=== PATIENT | male | born 1995 | race Caucasian/White ===

== ENCOUNTER 2018-04-19 14:29 | Emergency (ER) | payer OTHER, SELFPAY ==
[2018-04-19 14:38] VITALS: BP 130/85; PULSE 89; RESP 16; TEMP 36.2; O2SAT 100; BMI 29.5
--- NOTE | 2018-04-19 15:54 | ED_ITS ---
HPI - Back Pain/Injury <Lesa Silva PA-C - Last Filed: 04/19/18 22:16> General Chief Complaint: Back Pain/Injury Stated Complaint: threw out his back Time Seen by Provider: 04/19/18 16:06 Source: patient Mode of arrival: ambulatory Limitations: no limitations History of Present Illness HPI Narrative: This 23-year-old male comes to ED secondary to low back pain. 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 He states that he was unable to move or finishes work and needed help out of his truck. He took some Flexeril from a friend and states that has helped a fair amount, able to move a little bit and walk with a stiff gait. He states that he has had back strain from time to time this is worse than previous. He does mechanical and kuldip work, and states that there is always stress on his back, however he denies any specific work related injury and he had finished work after this happened last night. He denies any lower extremity weakness or paresthesia. He denies any groin numbness. He denies any difficulty urinating or bowel changes. He denies any new fever or other new symptoms on systems review. Related Data Previous Rx's Medication Instructions Recorded cyclobenzaprine 10 mg PO Q8H PRN #20 tab 04/19/18 lidocaine [Lidoderm] 2 patch TOP Q24H #30 each 04/19/18 meloxicam 15 mg PO DAILY #20 tab 04/19/18 Allergies Allergy/AdvReac Type Severity Reaction Status Date / Time No Known Drug Allergies Allergy Verified 04/19/18 14:38 Review of Systems <Lesa Silva PA-C - Last Filed: 04/19/18 22:16> Review of Systems ROS Unobtainable: All systems reviewed & are unremarkable except as noted in HPI and below PFSH <Lesa Silva PA-C - Last Filed: 04/19/18 22:16> Medical History Intermittent low back pain (Chronic) Surgical History Status post appendectomy (Resolved) Social History Smoking Status: Current every day smoker Social History Smoking Status: Current every day smoker Comment: Quit ETOH Exam <Lesa Silva PA-C - Last Filed: 04/19/18 22:16> Narrative Exam Narrative: GENERAL APPEARANCE: Patient sitting comfortably, in no distress. PULMONARY: Lungs clear to auscultation bilaterally CV: Regular rhythm regular without murmur, normal S1 and S2, no S3 or S4 MUSCULOSKELETAL: No point tenderness over the lumbar spine. Moderate tenderness and tightness over the left low lumbar musculature, most at the the mid scapular line, no tenderness on the right. He is able to fully extend the spine but not hyperextend. He is able to flex to about 30?. Unable to attempt rotation or lateral bend secondary to tenderness. Lower extremity strength 5/5 bilateral hip flexors, knee extensors, foot plantar flexion. Negative modified straight leg raise. He ambulates with a stiff, somewhat shortened gait, no limp or footdrop NEUROLOGIC: Bilateral patellar and Achilles DTRs 2+, lower extremity sensation grossly intact Initial Vital Signs Initial Vital Signs: Vital Signs Temperature 97.1 F L 04/19/18 14:38 Pulse Rate 89 04/19/18 14:38 Respiratory Rate 16 04/19/18 14:38 Blood Pressure 130/85 04/19/18 14:38 Pulse Oximetry 100 04/19/18 14:38 <Shantal Steinberg DO - Last Filed: 04/23/18 02:27> Initial Vital Signs Initial Vital Signs: Vital Signs Temperature 97.1 F L 04/19/18 14:38 Pulse Rate 89 04/19/18 14:38 Respiratory Rate 16 04/19/18 14:38 Blood Pressure 130/85 04/19/18 14:38 Pulse Oximetry 100 04/19/18 14:38 Course <Lesa Silva PA-C - Last Filed: 04/19/18 22:16> Vital Signs - 8 hr 04/19/18 14:38 04/19/18 16:39 Temperature 97.1 F L Pulse Rate 89 76 Respiratory Rate 16 16 Blood Pressure 130/85 123/77 Pulse Oximetry 100 99 <DO Swati Kendall Last Filed: 04/23/18 02:27> Vital Signs - 8 hr 04/19/18 14:38 04/19/18 16:39 Temperature 97.1 F L Pulse Rate 89 76 Respiratory Rate 16 16 Blood Pressure 130/85 123/77 Pulse Oximetry 100 99 Discharge Plan Departure Patient Disposition: Home Clinical Impression: Strain of lumbar region Qualifiers: Encounter type: initial encounter Qualified Code(s): S39.012A - Strain of muscle, fascia and tendon of lower back, initial encounter Discharge Date/Time: 04/19/18 16:41 Interventions: ED Discharge Assessment Last Done: 04/19/18 16:39 Instructions: DI for Back Spasm, DI for Back Strain or Sprain Activity Restrictions/Additional Instructions: Please return as we talked about if you have acutely worsening symptoms, or new symptoms such as weakness in your leg or difficulty walking, inability to urinate, etc. Otherwise, please rest at home. I have prescribed a once daily anti-inflammatory pain medicine called meloxicam with you as well as more Flexeril since that seemed to help you before. Remember that the Flexeril can make you drowsy and you should not work or drive. I have also prescribed some topical anesthetic pain patches for you. These have all been sent to your pharmacy. Please call your insurance tomorrow and schedule a follow-up with a local PCP who accepts your insurance, and hopefully you can get a referral to a local physical therapist to help prevent recurrent back injuries. [facility] clinic here in [facility] is typically able to see patients quickly if they take your insurance. You should remain off work until you are feeling better. Prescriptions: New cyclobenzaprine 10 mg tablet 10 mg PO Q8H PRN (Reason: muscle spasm) Qty: 20 RF: 0 meloxicam 15 mg tablet 15 mg PO DAILY Qty: 20 RF: 0 lidocaine [Lidoderm] 5 % adhesive patch,medicated 2 patch TOP Q24H Qty: 30 RF: 0 Stand Alone Forms: Work Release Note <Shantal Steinberg DO - Last Filed: 04/23/18 02:27> Cosign ED Attending Umesh Attestation: I was immediately available in the department for consultation. Documentation has been reviewed. I agree with assessment and plan.
[2018-04-19 16:39] VITALS: BP 123/77; PULSE 76; RESP 16; O2SAT 99
== END 2018-04-19 16:41 | disposition home or self-care (01) ==
PROVIDERS: Emergency Provider Internal Medicine
DX: S39.012A Strain of muscle, fascia and tendon of lower back, initial encounter (principal)
CPT/HCPCS: 99282; 99283

== ENCOUNTER 2019-05-24 11:11 | Observation (INO) | payer OTHER, SELFPAY ==
[2019-05-24] VITALS (11 sets, daily range): BP systolic 121–159; BP diastolic 79–100; PULSE 65–91; RESP 12–20; TEMP 36.4–36.8; O2SAT 98–100; BMI 63.4
--- NOTE | 2019-05-24 11:11 | DI.RAD.S_ITS ---
PROCEDURE: XR KNEE LT 1TO2V INDICATIONS: roof nail in knee TECHNIQUE: 3 views of the knee were acquired. COMPARISON: None. FINDINGS: Bones: No fractures or dislocations. No suspicious bony lesions. Soft tissues: A joint effusion cannot be excluded. The lateral view and is hyperflexed. There is a metal nail above the patella, between the patella and the distal femur. There is also a thin metal fragment which may be part of the nail, and is either outside of the leg or within the soft tissues. No suspicious soft tissue calcifications. IMPRESSION: Metallic foreign body, knee, likely extending into an intra-articular location within the knee joint. No fracture or dislocation. Dictated by: Jesus Ac M.D. on 05/24/2019 at 11:45 Approved by: Jesus Ac M.D. on 05/24/2019 at 11:47
[2019-05-24] MEDS: MORPHINE 2 MG/ML INJ IV ×2 (11:20→14:10)
--- NOTE | 2019-05-24 11:28 | ED_ITS ---
HPI - Extremity Injury (Lower) <Danisha Tim PA-C - Last Filed: 05/24/19 16:23> General Chief Complaint: Trauma Stated Complaint: Left Extremity Injury Time Seen by Provider: 05/24/19 11:11 Source: patient Mode of arrival: Ambulatory Limitations: no limitations and other History of Present Illness HPI Narrative: Keron is a 24-year-old male smoker, who presents to the emergency department brought in by ambulance after sustaining a nail gun injury to his left knee. 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 His knee was bent and the nail went in directly in the center, he has kept his leg bent since that time. the embedded nail is a galvanized 1 and 1/4 inch long kuldip nail with 2 copper barbs. Since this injury happened he has kept his knee bent, he had to be helped off the roof, and EMS splinted the leg with a triangle bandage keeping it in a bent position at the knee. His pain was a 10/10 initially, however after receiving morphine by EMS his pain is a 7/10 on arrival to the emergency department. He does report a little bit of numbness and tingling in his left lower leg, however he thinks this may be because he has been keeping it tightly bent since the injury occurred. He reports a previous injury to this knee about 4 years ago also from a nail, which was not as deep and which he extracted himself. He has had no surgeries to his left knee. He does not take blood thinners. He reports no other injuries and was feeling well prior to this injury. Last ate and had some fluids about 2 hours ago. He denies significant bleeding, swelling to the affected area, nausea vomiting fever cough shortness of breath loss of sensation in his left lower extremity or any other symptoms. MD complaint: leg injury (left knee) Onset (ago): hour(s) (1) Injury: Left: knee (nail through patella) Type of Injury: puncture wound Place: work Severity: moderate Severity scale (1-10): 10 Relieving factors: immobilization and other (morphine by EMS) Exacerbating factors: movement Context: other (nail gun) Associated symptoms: tingling, unable to bear weight and other (unable to bend the knee ) Other symptoms: none Treatments prior to arrival: splint (Makinen bandage tieing lower leg to upper leg with knee at a 45 degree angle) Related Data Previous Rx's Medication Instructions Recorded cyclobenzaprine 10 mg PO Q8H PRN #20 tab 04/19/18 lidocaine [Lidoderm] 2 patch TOP Q24H #30 each 04/19/18 meloxicam 15 mg PO DAILY #20 tab 04/19/18 cephalexin [Keflex] 500 mg PO QID #28 cap 05/24/19 cephalexin [Keflex] 500 mg PO TID #30 caplet 05/24/19 hydrocodone-acetaminophen [[place]] 1 tab PO Q4H PRN #7 tab 05/24/19 hydrocodone-acetaminophen [[place]] 1 tab PO Q6H PRN #12 tab NS 05/24/19 Allergies Allergy/AdvReac Type Severity Reaction Status Date / Time bee venom protein (honey bee) AdvReac Verified 05/24/19 12:19 Review of Systems <Danisha Tim PA-C - Last Filed: 05/24/19 16:23> Review of Systems ROS Unobtainable: All systems reviewed & are unremarkable except as noted in HPI and below Constitutional Constitutional: Reports as per HPI and Reports system reviewed and no additional complaints, except as docu Eyes Eyes: Reports system reviewed and no additional complaints, except as docu ENT Ears, Nose, Mouth, and Throat: Reports system reviewed and no additional complaints, except as docu Cardiovascular Cardiovascular: Reports system reviewed and no additional complaints, except as docu Respiratory Respiratory: Reports system reviewed and no additional complaints, except as docu Gastrointestinal Gastrointestinal: Reports system reviewed and no additional complaints, except as docu Genitourinary Genitourinary: Reports system reviewed and no additional complaints, except as docu Musculoskeletal Musculoskeletal: Reports as per HPI, Reports myalgias, Reports arthralgias, Reports limited range of motion, Denies numbness and Reports tingling Integumentary/Breasts Skin/Breast: Reports system reviewed and no additional complaints, except as docu Neurologic Neurologic: Reports as per HPI, Denies numbness, Denies sensory deficit, Reports tingling and Denies paresthesias Psychiatric Psychiatric: Reports system reviewed and no additional complaints, except as docu Hematologic/Lymphatic Hematologic/Lymphatic: Reports system reviewed and no additional complaints, except as docu, Denies easy bleeding and Denies easy bruising Patient History <Danisha Tim PA-C - Last Filed: 05/24/19 16:23> Medical History Intermittent low back pain (Chronic) Surgical History Status post appendectomy (Resolved) Social History Smoking Status: Current every day smoker Smoking Status: Current every day smoker tobacco type: cigarettes alcohol intake frequency: holidays/special occasions only Substance Use Type: marijuana Exam <Danisha Tim PA-C - Last Filed: 05/24/19 16:23> Initial Vital Signs Initial Vital Signs: Vital Signs Temperature 98.3 F 05/24/19 11:15 Pulse Rate 78 05/24/19 11:15 Respiratory Rate 14 05/24/19 11:15 Blood Pressure 159/100 H 05/24/19 11:15 Pulse Oximetry 100 05/24/19 11:15 Const General: cooperative, healthy appearing, acute distress and well hydrated Nutritional Appearance: average body habitus Orientation: Orientation (x4) Limitations: physical limitations (2nd to injury) [facility] Head: normal to inspection, normocephalic and atraumatic Ears: hearing grossly normal bilaterally and external ears normal Nose: external nose normal and nares normal Face and sinus: normal facial exam Eyes General: appearance normal, both eyes and all related structures Alignment and Position: alignment normal Eyelids: eyelids normal Conjunctivae: conjunctivae normal Sclera: sclerae normal Pupils: PERRL Neck Neck: normal visual inspection Chest Chest: normal inspection of the chest Resp Effort & Inspection: normal respiratory effort and able to speak in complete sentences Auscultation: clear to auscultation bilaterally Cardio Rate: regular rate Rhythm: regular rhythm Heart Sounds: S1 normal and S2 normal GI Inspection: normal to inspection Palpation: soft Back/Spine/Pelvis Back: normal to inspection Skin Trauma: puncture Neuro General: alert, awake and oriented x3 Speech: speech normal Extrem General: normal to inspection and full ROM Left lower extremity: normal capillary refill and knee Details: abnormal to inspection, tenderness, swelling (very mild) Location: of the patella, knee ligament exam normal and foreign body (superior to patella, 1 1/4 in nail imbedded to 1 depth); inspection abnormal and ROM abnormal; abnormal to inspection, abnormal ROM, no cyanosis, no edema and joint enlargement noted Psych Appearance: grossly normal <Kush Dale DO - Last Filed: 05/30/19 18:59> Initial Vital Signs Initial Vital Signs: Vital Signs Temperature 98.3 F 05/24/19 11:15 Pulse Rate 78 05/24/19 11:15 Respiratory Rate 14 05/24/19 11:15 Blood Pressure 159/100 H 05/24/19 11:15 Pulse Oximetry 100 05/24/19 11:15 Procedures <Danisha Tim PA-C - Last Filed: 05/24/19 16:23> Foreign Body OTHER Time Out Performed: yes Site: left and lower extremity (knee) Description of foreign body: other (1 1/4 inche copper barbed kuldip nail) Sedation/Analgesia: other (morphine, dilaudid, local infiltration) Technique: manual removal Confirmed by:: direct visualization Complications: none Post-procedure exam: awake, alert, normal BP, normal HR and normal O2 sat Neurovascular: normal distal pulse, distal light touch sensation intact, distal motor function normal, no signs of compartment syndrome and no change from pre- procedure Course <Danisha Tim PA-C - Last Filed: 05/24/19 16:23> Course Course Narrative: Patient was still in significant pain on arrival, he was given additional morphine before imaging. Initial exam of the left lower extremity showed no deficit except for reduced range of motion secondary to pain and presence of nail Orders Ordered: Discontinued Medications Acetaminophen (Tylenol) 975 mg PO NOW ONE Stop: 05/24/19 14:53 Last Admin: 05/24/19 16:50 Dose: 975 mg Documented by: HAYDEN Bupivacaine HCl (Sensorcaine 0.5% (Pf)) 30 ml INJ NOW ONE Stop: 05/24/19 16:29 Last Admin: 05/24/19 16:29 Dose: 15 ml Documented by: FERNANDA Celecoxib (Celebrex) 400 mg PO NOW ONE Stop: 05/24/19 14:53 Last Admin: 05/24/19 16:50 Dose: 400 mg Documented by: HAYDEN Diphtheria/Tetanus/Acell Pertussis (Adacel) 0.5 ml IM .ONCE ONE Stop: 05/24/19 11:20 Last Admin: 05/24/19 11:47 Dose: 0.5 ml Documented by: JAMAL Fentanyl (Sublimaze) 0 mcg IV Q5MIN PRN PRN Reason: Pain, Severe (7-10) Last Admin: 05/24/19 16:48 Dose: 24 mcg Documented by: HAYDEN Gabapentin (Neurontin) 300 mg PO NOW ONE Stop: 05/24/19 14:53 Last Admin: 05/24/19 16:49 Dose: 300 mg Documented by: HAYDEN Hydromorphone HCl (Dilaudid) 1 mg IM NOW ONE Stop: 05/24/19 11:48 Last Admin: 05/24/19 11:58 Dose: 1 mg Documented by: JAMAL Cefazolin Sodium/Dextrose (Ancef) 2 gm in 100 mls @ 200 mls/hr IV NOW ONE Stop: 05/24/19 12:15 Last Infusion: 05/24/19 16:05 Dose: 0 mls/hr Documented by: Admin: 05/24/19 15:50 Dose: 200 mls/hr Documented by: Infusion: 05/24/19 12:37 Dose: 0 mls/hr Documented by: Admin: 05/24/19 11:52 Dose: 200 mls/hr Documented by: JAMAL Lactated Ringer's (Lactated Ringers) 1,000 mls @ 42 mls/hr IV CONT DIAMANTE Last Infusion: 05/24/19 17:30 Dose: 0 mls/hr Documented by: Admin: 05/24/19 15:58 Dose: 42 mls/hr Documented by: HAYDEN Lactated Ringer's (Lactated Ringers) 1,000 mls @ 120 mls/hr IV CONT DIAMANTE Lidocaine/Sodium Bicarbonate (Buffered Lidocaine 10 Ml Syr) 10 ml INJ NOW ONE Stop: 05/24/19 11:13 Last Admin: 05/24/19 11:52 Dose: 10 ml Documented by: JAMAL Morphine Sulfate (Morphine) 2 mg IV Q2HR PRN PRN Reason: Pain, Severe (7-10) Last Admin: 05/24/19 14:10 Dose: 2 mg Documented by: Admin: 05/24/19 11:20 Dose: 2 mg Documented by: JAMAL Ondansetron HCl (Zofran) 4 mg IV NOW PRN PRN Reason: Nausea And Vomiting Oxycodone HCl (Percolone) 5 mg PO PACUNOW PRN PRN Reason: Mild or moderate pain Last Admin: 05/24/19 17:10 Dose: 5 mg Documented by: HAYDEN Reevaluation(s) Reevaluation #1: X-ray shows the nail appears to be superior to the patella, h owever it is probably in the capsule of the joint, discussed this with Dr. Dale, who advises we will numb with lidocaine, pull the nail get additional x- rays to confirm there was nothing left in the joint/knee and then call on-call orthopedics as he may need washout. Time: 11:52 Reevaluation #2: Was planning to discharge the patient home as per Dr. Dale discussion with Dr. don Orthopedics, however Dr. don came down and evaluated the patient look at the imaging again and decided to take the patient to the OR for washout. Time: 12:50 Consultations Consultation #1: Dr. Dale spoke with Dr. Treviño, clerical receptionist orthopedics, they reviewed films and discussed this patient's case. Dr. Treviño advised to wash out, discharge with antibiotics and follow-up with ortho. After examining the patient in the ED and reviewing imaging again he will take the patient to the OR direct for surgical washout. Time: 12:22 Vital Signs Vital signs: Vital Signs - 8 hr 05/24/19 11:15 05/24/19 12:01 05/24/19 12:06 Temperature 98.3 F Pulse Rate 78 91 H 70 Respiratory Rate 14 12 16 Blood Pressure 159/100 H 151/91 H Blood Pressure [Left Arm] 149/95 H Pulse Oximetry 100 100 98 05/24/19 13:11 Temperature Pulse Rate 76 Respiratory Rate 18 Blood Pressure Blood Pressure [Left Arm] 131/83 Pulse Oximetry 100 <Kush Dale, DO - Last Filed: 05/30/19 18:59> Orders Ordered: Discontinued Medications Acetaminophen (Tylenol) 975 mg PO NOW ONE Stop: 05/24/19 14:53 Last Admin: 05/24/19 16:50 Dose: 975 mg Documented by: HAYDEN Bupivacaine HCl (Sensorcaine 0.5% (Pf)) 30 ml INJ NOW ONE Stop: 05/24/19 16:29 Last Admin: 05/24/19 16:29 Dose: 15 ml Documented by: FERNANDA Celecoxib (Celebrex) 400 mg PO NOW ONE Stop: 05/24/19 14:53 Last Admin: 05/24/19 16:50 Dose: 400 mg Documented by: HAYDEN Diphtheria/Tetanus/Acell Pertussis (Adacel) 0.5 ml IM .ONCE ONE Stop: 05/24/19 11:20 Last Admin: 05/24/19 11:47 Dose: 0.5 ml Documented by: JAMAL Fentanyl (Sublimaze) 0 mcg IV Q5MIN PRN PRN Reason: Pain, Severe (7-10) Last Admin: 05/24/19 16:48 Dose: 24 mcg Documented by: HAYDEN Gabapentin (Neurontin) 300 mg PO NOW ONE Stop: 05/24/19 14:53 Last Admin: 05/24/19 16:49 Dose: 300 mg Documented by: HAYDEN Hydromorphone HCl (Dilaudid) 1 mg IM NOW ONE Stop: 05/24/19 11:48 Last Admin: 05/24/19 11:58 Dose: 1 mg Documented by: JAMAL Cefazolin Sodium/Dextrose (Ancef) 2 gm in 100 mls @ 200 mls/hr IV NOW ONE Stop: 05/24/19 12:15 Last Infusion: 05/24/19 16:05 Dose: 0 mls/hr Documented by: Admin: 05/24/19 15:50 Dose: 200 mls/hr Documented by: Infusion: 05/24/19 12:37 Dose: 0 mls/hr Documented by: Admin: 05/24/19 11:52 Dose: 200 mls/hr Documented by: JAMAL Lactated Ringer's (Lactated Ringers) 1,000 mls @ 42 mls/hr IV CONT DIAMANTE Last Infusion: 05/24/19 17:30 Dose: 0 mls/hr Documented by: Admin: 05/24/19 15:58 Dose: 42 mls/hr Documented by: RLUDWIG Lactated Ringer's (Lactated Ringers) 1,000 mls @ 120 mls/hr IV CONT DIAMANTE Lidocaine/Sodium Bicarbonate (Buffered Lidocaine 10 Ml Syr) 10 ml INJ NOW ONE Stop: 05/24/19 11:13 Last Admin: 05/24/19 11:52 Dose: 10 ml Documented by: JAMAL Morphine Sulfate (Morphine) 2 mg IV Q2HR PRN PRN Reason: Pain, Severe (7-10) Last Admin: 05/24/19 14:10 Dose: 2 mg Documented by: Admin: 05/24/19 11:20 Dose: 2 mg Documented by: JAMAL Ondansetron HCl (Zofran) 4 mg IV NOW PRN PRN Reason: Nausea And Vomiting Oxycodone HCl ([place]) 5 mg PO PACUNOW PRN PRN Reason: Mild or moderate pain Last Admin: 05/24/19 17:10 Dose: 5 mg Documented by: HAYDEN Vital Signs Vital signs: Vital Signs - 8 hr 05/24/19 11:15 05/24/19 12:01 05/24/19 12:06 Temperature 98.3 F Pulse Rate 78 91 H 70 Respiratory Rate 14 12 16 Blood Pressure 159/100 H 151/91 H Blood Pressure [Left Arm] 149/95 H Pulse Oximetry 100 100 98 05/24/19 13:11 Temperature Pulse Rate 76 Respiratory Rate 18 Blood Pressure Blood Pressure [Left Arm] 131/83 Pulse Oximetry 100 MDM - Extremity Injury (Lower) <Danisha Tim PA-C - Last Filed: 05/24/19 16:23> Differential Diagnosis Differential diagnosis: Likely acute internal derangement of knee and other (puncture wound left knee) Medical Records Attestation: I reviewed the patient's medical records. Imaging Data Extremity x-ray #1: My Impression: I agree with the radiologist impression. Radiologist's Impression: X-ray knee left: Impression: metallic foreign body, knee, likely extending into an intra- articular location within the knee joint. No fracture or dislocation. Dictated by: Jesus Ac MD on 05/24/2019 at 11:45 a.m. Extremity x-ray #2: My Impression: I agree with the radiologist's impression. Radiologist's Impression: XRay Report Signed Patient: Rajat Marinelli [facility]#: [id number] : 1995Acct:[id number] Age/Sex: 24 / MDate of Service: 05/24/19 Loc: ED Accession Number: [id number] Procedure: XR knee LT 1to2V Ordering Provider: Danisha Tim P.A-C PROCEDURE: XR KNEE LT 1TO2V INDICATIONS: post nail extraction--suspect copper maikel still embedded TECHNIQUE: 2 views of the knee were acquired. COMPARISON: [facility], , XR KNEE LT 1TO2V, 05/24/2019, 11:24. FINDINGS: Bones: No fractures or dislocations. No suspicious bony lesions. Soft tissues: Probable trace joint effusion. The nail has been removed. There is a residual thin linear metallic foreign body at the superior medial aspect of the patella. IMPRESSION: Residual thin linear metallic foreign body at the superior medial aspect of the patella. Dictated by: Federico Gamboa M.D. on 05/24/2019 at 12:43 Approved by: Federico Gamboa M.D. on 05/24/2019 at 12:45 MDM Narrative Medical decision making narrative: This is a previously healthy 24-year-old smoker who presents to the emergency department via EMS after sustaining a injury to his left knee from a nail shot by a nail gun. 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 Nail was removed without incident. Additional imaging obtained. A small copper maikel that came off the nail remains imbedded in the soft tissue, this was discussed with Orthopedics, before he was taken to the OR for washout. Patient states he does not plan to file an L & I claim that happened at work. Had planned to discharge home with Keflex and orthopedic follow-up, but Orthopedics washout first in OR. There is no evidence of fracture, he certainly has soft tissue injury, he may also have intra-articular injury, and damage to the joint capsule. He may be at risk for infection, ancef was given in the ED, his care was handed off to Orthopedics for OR washout, leaving discharge medications up to Orthopedics. Discharge Plan Departure Patient Disposition: Admitted as Observation Clinical Impression: Puncture wound of knee with foreign body Qualifiers: Encounter type: initial encounter Laterality: left Qualified Code(s): S81.042A - Puncture wound with foreign body, left knee, initial encounter Discharge Date/Time: 05/24/19 15:00 Admit Date/Time: 05/24/19 13:24 Admit Provider: Amor Treviño
[2019-05-24] MEDS: TET,DIPH,PERTUSS(ACELL),VAC/PF 0.5 ML SYRINGE IM (11:47)
[2019-05-24] MEDS: LIDO 1%/SOD BICARB 8.4% (10ML) 10 ML SYRINGE INJ (11:52)
[2019-05-24] MEDS: CEFAZOLIN 2 GM/100 ML FROZ.PIGGY IV ×2 (11:52→15:50)
[2019-05-24] MEDS: HYDROMORPHONE 1 MG INJ IM (11:58)
--- NOTE | 2019-05-24 12:03 | DI.RAD.S_ITS ---
PROCEDURE: XR KNEE LT 1TO2V INDICATIONS: post nail extraction--suspect copper maikel still embedded TECHNIQUE: 2 views of the knee were acquired. COMPARISON: [facility], CR, XR KNEE LT 1TO2V, 05/24/2019, 11:24. FINDINGS: Bones: No fractures or dislocations. No suspicious bony lesions. Soft tissues: Probable trace joint effusion. The nail has been removed. There is a residual thin linear metallic foreign body at the superior medial aspect of the patella. IMPRESSION: Residual thin linear metallic foreign body at the superior medial aspect of the patella. Dictated by: Federico Gamboa M.D. on 05/24/2019 at 12:43 Approved by: Federico Gamboa M.D. on 05/24/2019 at 12:45
--- NOTE | 2019-05-24 12:03 | PC.NURSE ---
patient was in room with Brando Phillips. Pt was anesthetised with local and the nail was pulled out with a right angle clamp. The nail appeared to be in tact. A maikel may be still in the wound. Pt to be x-rayed for follow up. Pt tolerated the procedure well.
--- NOTE | 2019-05-24 12:34 | PC.NURSE ---
Danisha explored the wound and was unable to locate the metal marcio. This marcio remains visible under x-ray in his left knee. Danisha, Norman, and Jacqueline are all aware of this.
--- NOTE | 2019-05-24 13:14 | PC.NURSE ---
Patient changed into a hospital gown and preparing for surgery.
--- NOTE | 2019-05-24 13:24 | P.CONS_ITS ---
History of Present Illness Consult details Date Patient Seen: 05/24/19 Time Patient Seen: 13:24 Chief complaint: Left Extremity Injury Reason for consult: Penetrating nail gun injury to left knee Requesting provider: Kush Dale Narrative: 24-year-old male with a penetrating nail into his left knee joint. He was working at a construction site and training another worker. Unfortunately, the trainee fired a nail that went into the patient's left knee. His knee was bent any could not straighten it out until the nail was removed in the emergency room but is still fairly painful he denies any other injury. Mi nimal bleeding. No numbness or tingling in the leg. Meds Home Medications and Allergies Home Medications Medication Instructions Recorded Confirmed Type cyclobenzaprine 10 mg PO Q8H PRN #20 tab 04/19/18 Rx lidocaine [Lidoderm] 2 patch TOP Q24H #30 each 04/19/18 Rx meloxicam 15 mg PO DAILY #20 tab 04/19/18 Rx cephalexin [Keflex] 500 mg PO TID #30 caplet 05/24/19 Rx hydrocodone-acetaminophen [[place]] 1 tab PO Q6H PRN #12 tab NS 05/24/19 Rx Allergies Allergy/AdvReac Type Severity Reaction Status Date / Time bee venom protein (honey bee) AdvReac Verified 05/24/19 12:19 Review of Systems Constitutional Constitutional: Denies chills and Denies fever(s) Cardiovascular Cardiovascular: Denies chest pain Respiratory Respiratory: Denies cough Musculoskeletal Musculoskeletal: Denies numbness Neurologic Neurologic: Denies numbness Hematologic/Lymphatic Hematologic/Lymphatic: Denies easy bleeding Exam Vital Signs (past 8 hours): - 05/24/19 11:15 05/24/19 12:01 05/24/19 12:06 Temperature 98.3 F Pulse Rate 78 91 H 70 Respiratory Rate 14 12 16 Blood Pressure 159/100 H 151/91 H Blood Pressure [Left Arm] 149/95 H Pulse Oximetry 100 100 98 05/24/19 13:11 Temperature Pulse Rate 76 Respiratory Rate 18 Blood Pressure Blood Pressure [Left Arm] 131/83 Pulse Oximetry 100 Oxygen Delivery Method Room Air Const Orientation: alert and oriented x3 Resp Auscultation: clear to auscultation bilaterally Cardio Rate: regular rate Rhythm: regular rhythm Extrem Other: Left knee 3 mm puncture wound over the proximal pole of the patella. No bleeding. Intact sensation throughout. Able to move knee through full range of motion. Objective Imaging Left knee x-ray: My impression: Presence of a barbed nail through the left knee at the proximal aspect of the patella with probable penetration of the joint of 1-2 mm. There is still a small maikel left after the remainder of the nail was removed. Assessment & Plan Assessment & Plan narrative: Penetrating trauma with a construction nail into the left knee joint. I think this puts him at a higher risk for a septic joint and would be best managed with a washout of the left knee. This can be done arthroscopically. It is not actually septic at this point but sooner this is taking care of the lower his chance of infection and I do consider this an emergency as it is considered an open joint. Risks and benefits of surgery discussed including but not limited to medical risks with heart attack, stroke, , DVT, PE, infection, bleeding, sensitivity of nerves, stiffness, need for further surgery. He understands and we will proceed today. This consult serves as his history and physical.
--- NOTE | 2019-05-24 15:11 | PM.PREOP ---
Pre-operative Note Interval Note History & Physical reviewed/Exam performed by Physician: Yes Changes to H&P: No
[2019-05-24] MEDS: LACTATED RINGERS 1,000 ML 42 ML IV (15:58)
[2019-05-24] MEDS: BUPIVACAINE 0.5% (PF) VIAL 30 ML INJ (16:29)
--- NOTE | 2019-05-24 16:30 | PM.OP.1 ---
Operative Date/Time/Diagnoses Date of procedure: 05/24/19 Time of procedure: 16:31 Pre-op diagnosis: Penetrating wound with open left knee joint Post-op diagnosis: same Procedure & Clinicians Procedure: Irrigation debridement of open left knee joint Same procedure as scheduled: Yes Indications: 24-year-old male that had a nail gun nail penetrate his knee with presumed penetration into the joint. It is felt that he would be best treated with a washout to decrease the chance of infection. Risks and benefits of surgery discussed and appropriate consents obtained. Click Yes if Unassisted: Yes Anesthesia Type: General Operative Notes Findings: None Closure Type: primary Specimen(s): none sent Estimated Blood Loss (mL): 2 Procedure in detail: Patient brought to the operating room and intubated on the table. Time-out was performed. Attention was turned towards the well-marked left knee. Preoperative antibiotics were given. The left leg was prepped and draped in standard sterile fashion. We used local anesthetic for a planned portals. A small stab incision was made for the superolateral and anteromedial portals. Trocars were inserted and we began irrigating. We used the camera to go through the superolateral portal and manipulated the skin to see the undersurface where the nail had been. There did appear to be a puncture julián here and this was recorded on film. We continued irrigating to the bag was empty and he had been adequately washed out. The irrigation was stopped. The remaining fluid was milked out of the joint. The trocar was removed. This again incisions were closed. Marcaine was injected into the joint for postoperative pain control. A sterile dressing was placed. He was then extubated brought to recovery with no complications. Complications: none Post-operative Condition: stable Disposition: PACU Plan for aftercare: Weight bear as tolerated. Discharge home on oral antibiotics. Follow up in 1 week for wound check
[2019-05-24] MEDS: fentaNYL 100 MCG/2 ML INJ IV (16:48)
[2019-05-24] MEDS: GABAPENTIN 300 MG CAPSULE PO (16:49)
[2019-05-24] MEDS: CELECOXIB 200 MG CAPSULE 400 MG PO (16:50)
[2019-05-24] MEDS: ACETAMINOPHEN 325 MG TABLET 975 MG PO (16:50)
[2019-05-24] MEDS: OXYCODONE IR 5 MG TABLET PO (17:10)
--- NOTE | 2019-05-24 17:19 | SUR.PHASEI ---
0715 assumed care, pt states pain is a 6/10, is improving, tolerating pain level well. Fluids given prior to Rx, declined snack.
--- NOTE | 2019-05-24 17:45 | SUR.PHASEII ---
174 Very pleasant, talking, laughing. Questions answered, states that he's had previous knee surgeries; appears very comfortable with process. Able to walk on knee without significant pain. Stable and voice appreciation multiple times.
== END 2019-05-24 17:45 | disposition home or self-care (01) ==
LOC: ED 13:22 → AC 13:25
PROVIDERS: Admitting Provider Orthopaedic Surgery; Emergency Provider Student in an Organized Health Care Education/Training Program; Referring Provider Student in an Organized Health Care Education/Training Program; Visit Provider Orthopaedic Surgery
PROC: (CPT 29870; principal; 2019-05-24 15:45)
DX: S81.042A Puncture wound with foreign body, left knee, initial encounter (principal); Y93.H3 Activity, building and construction; F17.210 Nicotine dependence, cigarettes, uncomplicated
CPT/HCPCS: 20103; 73560; 90471; 96365; 96372; 96375; 96376; 99284; G0378; 90715; J0690; J1170; J2270; J2405; J2704; J3010

== ENCOUNTER 2023-06-25 03:34 | Emergency (ER) | payer SELFPAY ==
[2023-06-25 04:27] VITALS: BP 151/86; PULSE 83; RESP 18; TEMP 36.4; O2SAT 97; BMI 29.8
--- NOTE | 2023-06-25 06:26 | PC.NURSE ---
no answer in waiting room
[2023-06-25 06:44] VITALS: BP 129/79; PULSE 90; RESP 18; O2SAT 97
--- NOTE | 2023-06-25 06:45 | PC.NURSE ---
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 Pt reports that he has been putting neosporin and bandaids on wounds but they do not seem to be getting any better. Swelling and redness observed on right lower extremity. Redness on left lower extremity. Bilateral LE warm to touch. Denies fever, n/v, cp, sob. Pt a&ox4.
[2023-06-25 06:56] VITALS: BP 129/79; PULSE 79; RESP 22; TEMP 36.7; O2SAT 98
--- NOTE | 2023-06-25 07:17 | ED_ITS ---
HPI - Extremity Problem General Chief complaint: Extremity Problem,Nontraumatic Stated complaint: infections on both legs from bug bites Time Seen by Provider: 06/25/23 06:59 Source: patient Mode of arrival: Ambulatory History of Present Illness HPI Narrative: Patient is a 28-year-old male without significant past medical history presenting today with 2 weeks of right leg wounds and swelling. He says it was a lot worse it is actually getting better. He denies any sort of injection or drug use. He denies fever or chills. He says that the only reason he is here is because his friend really wanted to get him checked out. He says it is painful and swollen. He is able to walk and ambulate. Related Data Previous Rx's Medication Instructions Recorded cyclobenzaprine 10 mg tablet 10 mg PO Q8H PRN muscle spasm #20 04/19/18 tabs lidocaine 5 % topical patch 2 patch topical Q24H back pain #30 04/19/18 (Lidoderm) ea meloxicam 15 mg tablet 15 mg PO DAILY back pain #20 tabs 04/19/18 [place] 5 mg-325 mg tablet 1 tab PO Q6H PRN pain (scale score 05/24/19 (hydrocodone-acetaminophen) 7-10) #12 tabs cephalexin 500 mg capsule (Keflex) 500 mg PO QID #28 caps 05/24/19 cephalexin 500 mg capsule (Keflex) 500 mg PO TID #30 caplets 05/24/19 hydrocodone 5 mg-acetaminophen 325 1 tab PO Q4H PRN pain #7 tabs 20 mg tablet ([place]) doxycycline hyclate 100 mg capsule 100 mg PO BID #20 caps 06/25/23 Allergies Allergy/AdvReac Type Severity Reaction Status Date / Time bee venom protein (honey bee) AdvReac Verified 05/24/19 12:19 Patient History Medical History (Updated 06/25/23 @ 07:57 by Shantal Steinberg DO) Intermittent low back pain Surgical History Status post appendectomy Social History Smoking Status: Current every day smoker Smoking Status: Current every day smoker tobacco type: cigarettes alcohol intake frequency: holidays/special occasions only Substance Use Type: does not use Exam Initial Vital Signs Initial Vital Signs: Vital Signs Temperature 97.5 F L 06/25/23 04:27 Pulse Rate 83 06/25/23 04:27 Respiratory Rate 18 06/25/23 04:27 Blood Pressure 151/86 H 06/25/23 04:27 Pulse Oximetry 97 06/25/23 04:27 Oxygen Delivery Method Room Air 06/25/23 04:27 GENERAL: Dirty, unkempt alert well-appearing 28-year-old male CARDIOVASCULAR: peripheral pulses in tact, cap refill <2 sec RESPIRATORY: No respiratory distress, speaks in full sentences without difficulty EXTREMITIES: Normal range of motion, no clubbing or edema. Neurovascularly intact NEUROLOGICAL: Cranial nerves II through XII grossly intact. Normal gait and speech. SKIN: Right lower extremity multiple skin wounds no gross drainage some mild erythema swelling of right leg greater than left leg no streaking non circumferential Course Vital Signs Vital signs: Vital Signs - 8 hr 06/25/23 04:27 06/25/23 06:44 06/25/23 06:56 Temperature 97.5 F L 98.1 F Pulse Rate 83 90 79 Respiratory Rate 18 18 22 Blood Pressure 151/86 H 129/79 129/79 Pulse Oximetry 97 97 98 Oxygen Delivery Method Room Air Room Air 06/25/23 08:09 Temperature 98 F Pulse Rate 80 Respiratory Rate 20 Blood Pressure 131/79 Pulse Oximetry 98 Oxygen Delivery Method Room Air MDM - Extremity (Nontraumatic) MDM Narrative Medical decision making narrative: Patient 28-year-old male who presents today with right leg redness and wounds. Denies any sort of drainage it is swollen he is afebrile appears well. Will start him on antibiotics. He states that his wounds have been there for 2 weeks it is actually improving but still infected. No evidence of SIRS or sepsis Discharge Plan Departure Patient Disposition: Home Clinical Impression: Cellulitis Instructions: DI for Cellulitis -- Adult Activity Restrictions/Additional Instructions: *You have been diagnosed with cellulitis *What to do: Keep leg clean and dry with soap and water. Elevate and ice as often as possible *Continue to take medications as directed Doxycycline 100 mg twice a day for 10 days *Follow up with your primary care provider in 2-3 days or call [phone] *Return to ER if you should have increasing redness swelling fever pain or any new, worsening or concerning symptoms Prescriptions: New doxycycline hyclate 100 mg capsule 100 mg PO BID Qty: 20 0RF No Action cyclobenzaprine 10 mg tablet 10 mg PO Q8H PRN (Reason: muscle spasm) Qty: 20 0RF Rx Instructions: 1/2-1 tab up to q8h prn, do not drive meloxicam 15 mg tablet 15 mg PO DAILY Qty: 20 0RF Rx Instructions: not with other NSAIDs lidocaine [Lidoderm] 5 % adhesive patch,medicated 2 patch TOP Q24H Qty: 30 0RF Rx Instructions: apply 1-2 patches and leave on most painful area for 12 hrs cephalexin [Keflex] 500 mg capsule 500 mg PO TID Qty: 30 0RF hydrocodone-acetaminophen [[place]] 5-325 mg tablet 1 tab PO Q6H PRN (Reason: pain (scale score 7-10)) Qty: 12 0RF cephalexin [Keflex] 500 mg capsule 500 mg PO QID Qty: 28 0RF hydrocodone-acetaminophen [[place]] 5-325 mg tablet 1 tab PO Q4H PRN (Reason: pain) Qty: 7 0RF Stand Alone Forms: Patient Portal/API
[2023-06-25 08:09] VITALS: BP 131/79; PULSE 80; RESP 20; TEMP 36.6; O2SAT 98
== END 2023-06-25 08:15 | disposition home or self-care (01) ==
PROVIDERS: Emergency Provider Emergency Medicine
DX: L03.115 Cellulitis of right lower limb (principal)
CPT/HCPCS: 99281; 99283